=== PATIENT | male | born 1990 | race Caucasian/White ===

== ENCOUNTER 2018-05-22 12:38 | Emergency (ER) | payer OTHER ==
[~2018-05-22] VITALS: Ht 177.8 cm; Wt 72.6 kg
[~2018-05-22 12:38] MED LIST: ALBU90OI INH; BENZ100A PO; CEPH250A PO; CEPH500 PO; HYDACE5 PO; HYDHCL25 PO; NAPR550 PO; OXYACE5T PO; PRODEXEL PO; Pseudoephedrine30 MG PO; RXOXYACE PO; TRIA80TC TOP; Zithromax250 MG PO
[2018-05-22] MEDS ORDERED: METPRE4DP PO (12:53)
[2018-05-22] MEDS ORDERED: Keflex500 MG PO (12:53)
== END 2018-05-22 12:53 | disposition home or self-care (01) ==
LOC: ER 12:38
DX: L03.114 Cellulitis of left upper limb (principal); F17.210 Nicotine dependence, cigarettes, uncomplicated

== ENCOUNTER 2018-11-05 19:03 | Emergency (ER) | payer OTHER ==
[~2018-11-05] VITALS: Ht 172.7 cm; Wt 81.2 kg
[~2018-11-05 19:03] MED LIST changes: +Keflex500 MG PO; +METPRE4DP PO
== END 2018-11-05 21:03 | disposition left against medical advice (07) ==
LOC: ER 19:03
DX: Z53.21 Procedure and treatment not carried out due to patient leaving prior to being seen by health care provider (principal)

== ENCOUNTER 2019-11-09 11:27 | Emergency (ER) | payer OTHER ==
[~2019-11-09] VITALS: Ht 177.8 cm; Wt 72.6 kg
[2019-11-09 11:50] LABS: Calcium, Ionized (POC) 1.14 mmol/L (1.10-1.46); Chloride (POC) 104 mmol/L (98-108); Creatinine (POC) 0.7 mg/dL (0.8-1.3); Glucose (ISTAT POC) 105 mg/dL (70-99); Hemoglobin (POC) 14.3 g/dL (13.5-17.5); Potassium (POC) 3.8 mmol/L (3.5-5.5); Sodium (POC) 139 mmol/L (135-148); Total CO2 (POC) 25 mmol/L (21-32)
[2019-11-09] MEDS ORDERED: NARCAN4 MG (13:14)
== END 2019-11-09 13:27 | disposition home or self-care (01) ==
LOC: ER 11:27
PROVIDERS: Emergency Medicine
DX: T40.1X1A Poisoning by heroin, accidental (unintentional), initial encounter (principal); J96.01 Acute respiratory failure with hypoxia; F41.9 Anxiety disorder, unspecified; F17.210 Nicotine dependence, cigarettes, uncomplicated; Z79.899 Other long term (current) drug therapy
CPT/HCPCS: 80047; 85014; 96374; 96375; 99284-25; J2310; J2405